=== PATIENT | male | born 1965 | race Caucasian/White ===

== ENCOUNTER 2018-09-22 10:17 | Day surgery (SDC) | payer OTHER ==
[2018-09-17 09:13] VITALS: BMI 26.0
[~2018-09-22 10:17] MED LIST: DEXAMETHASONE SOD PHOSPHATE 10 MG/ML 1 ML VIAL IV ONE; HYDROmorphone 0.5 MG/0.5 ML SYRINGE IVP PRN; LACTATED RINGERS 1,000 ML IV SCH; LIDOCAINE 1% 20 ML VIAL (10MG/ML) FOR IV START INTRADERMA PRN; ONDANSETRON 4 MG/2 ML VIAL IVP ONE; Pre Op ABX Message 1 EACH MISC MISCELLANE ONE; SCOPOLAMINE 1.5MG/72HR PATCH TRANSDERM ONE
[2018-09-22 10:54] LABS: Glucose,Whole Blood 128 mg/dL (75-99)
[2018-09-22] MEDS ORDERED: MIDAZOLAM 2 MG/2 ML VIAL IV ONE (11:08)
--- NOTE | 2018-09-22 11:17 | P.ONQ ---
Anesthesiology Proc Note - PNB - Peripheral Nerve Block Performed Left Interscalene Single Time Out Performed: Yes Procedure Start Time: 11:08 Procedure Stop Time: :13 Indication: Acute Post-Operative Pain, Requested by physician (Dr Cat) Sedation Type: Sedate with meaningful contact maintained Preparation: Sterile Prep Position: Supine Needle Types: On-Q Needle Size: 50mm (2") Needle Gauge: 20 Technique: Ultrasound Injectate: 0.5% Ropivacaine (see comment for volume) (30 ml) Blood Aspirated: No Pain Paresthesia on Injection Noted: No Resistance on Injection: Normal Events: Uneventful and Well Tolerated
[2018-09-22] MEDS ORDERED: BUPIVACAIN-EPI 0.5%-1:200,000 30 ML VIAL INTRAARTIC ONE ×2 (12:30→13:23)
[2018-09-22] MEDS ORDERED: PHENYLEPHRINE-0.9% NACL SYG 1 MG/10 ML SYRINGE ONE (13:10)
[2018-09-22] MEDS ORDERED: MIDAZOLAM 2 MG/2 ML VIAL ONE (13:10)
[2018-09-22] MEDS ORDERED: LIDOCAINE 1% INJ 10MG/ML (20 ML MDV) ONE (13:10)
[2018-09-22] MEDS ORDERED: SUCCINYLCHOLINE CHLORIDE 100 MG/5 ML SYR IV ONE (13:10)
[2018-09-22] MEDS ORDERED: ROPIVACAINE 5 MG/ML 30 ML VIAL ONE (13:10)
[2018-09-22] MEDS ORDERED: PROPOFOL 10 MG/ML 20 ML VIAL IV ONE (13:10)
[2018-09-22] MEDS ORDERED: fentaNYL (PF) 50 MCG/ML 2 ML AMP ONE (13:10)
[2018-09-22] MEDS ORDERED: ceFAZolin IN SWFI 2 GM/20 ML SYRINGE IVP ONE (13:23)
[2018-09-22 14:48] VITALS: TEMP 97.2
[2018-09-22 14:57] LABS: Glucose,Whole Blood 127 mg/dL (75-99)
[2018-09-22] MEDS ORDERED: LACTATED RINGERS 1,000 ML IV ONE (15:16)
[2018-09-22 16:16] VITALS: BP 124/81; PULSE 90; RESP 16
--- NOTE | 2018-09-22 19:13 | OP ---
OPERATIVE REPORT DATE OF PROCEDURE: 09/22/2018. PREOP DIAGNOSES: 1. Left shoulder full-thickness rotator cuff tear. 2. Left shoulder superior labral tear. 3. Left shoulder subacromial impingement. POSTOPERATIVE DIAGNOSES: 1. Left shoulder full-thickness tear of the supraspinatus and anterior infraspinatus 2 cm x 2 cm tear. 2. Left shoulder type 2 superior labral tear. 3. Left shoulder type 2 anterolateral acromial spur. 4. Left shoulder dense subacromial adhesions. PROCEDURE PERFORMED: 1. Left shoulder arthroscopic rotator cuff repair, 2 cm x 2 cm tear of the supraspinatus in the anterior infraspinatus. 2. Left shoulder arthroscopic acromioplasty. 3. Left shoulder arthroscopic biceps tenotomy. 4. Left shoulder arthroscopic anterior superior and posterior labral debridement. 5. Left shoulder arthroscopic subacromial lysis of adhesions. SURGEON: Peyman Cat M.D. VISCOSITY WORKER: Jaime JOHNSON. ANESTHESIA: General endotracheal. ESTIMATED BLOOD LOSS: Minimal. TOURNIQUET: None. DRAINS: None. COMPLICATIONS: None apparent. DISPOSITION: Postanesthesia care unit. PHYSICAL EXAMINATION: Examination under anesthesia, the left shoulder elevation was 150 degrees, external rotation at the side was 30 degrees. External rotation at 90 degrees, abduction was 70 degrees, internal rotation at 90 degrees and abduction was 30 degrees, sulcus less than 1 cm, anterior translation glenoid face, posterior translation glenoid face. ARTHROSCOPIC FINDINGS: Left shoulder: 1. Superior labrum type 2 superior labral tear tearing both anterior and posterior. The biceps anchor. The biceps anchor was not intact. There is also fairly significant partial tearing of the intra-articular portion of long head of the biceps tendon. 2. Anterior inferior labrum, normal glenoid labral attachment. 3. Posterior labrum: Tearing of the posterior labrum from the 10 o'clock position to the 12 o'clock position on the glenoid face. 4. Humeral head cartilage normal. 5. Rotator cuff: Full-thickness tear of the supraspinatus and the anterior infraspinatus 2 cm x 2 cm tear with retraction to the mid aspect of the humeral head. 6. Glenoid face cartilage was mild grade 1 change. 7. Subacromial space: Significant fraying of the undersurface of the coracoacromial ligament with a type 2 anterolateral acromial spur. There was also dense subacromial adhesions adhering from the acromion to the superior aspect of the rotator cuff. INDICATIONS: Alexis is a very pleasant 53-year-old male who had an injury to his left shoulder. He sustained this injury several months ago. He was noted to have weakness as well as the pain in the shoulder. He has been through fairly significant course of nonoperative treatment up to this point. Physical examination and MRI reveal a fairly significant tear of the rotator cuff as well as tearing of the superior labrum. At this point in time, the patient feels that he has failed conservative management and would like to proceed with operative intervention. Long discussion was held with the patient with regard to treatment options. The risks of procedure were all discussed in detail. These risks included, but were not limited to risk of infection, nerve damage, bleeding, pain, and a small risk of deep vein thrombosis which could lead to fatal pulmonary embolism. Further risks include lack of healing rotator cuff and the possibility for biceps contour change with a biceps tenotomy. The patient understands the operation as well as the fact that there is no guarantee of improvement of his symptoms. Appropriate informed consent was obtained. PROCEDURE: The patient was identified in preoperative holding area. Surgical site was marked by both the patient and myself. He was given 2 g of Ancef IV for prophylactic purposes. He was then transferred to the operative suite. He was placed supine on the operative table. The patient was then intubated endotracheally and received general anesthesia throughout the operative procedure. Examination under anesthesia was then performed with the findings noted above. The patient was then placed into the beach chair position well-padded in preparation for surgery. Great care was taken to ensure the cervical spine is in neutral alignment well-padded and maintained that way throughout the operative procedure. Great care was also taken to ensure that his legs were appropriately padded as well. The patient's left upper extremity was then prepped and draped in usual sterile fashion. Standard surgical pause undertaken to ensure that appropriate preop antibiotics were given and that we were operating the correct site. All staff in the room in agreement we proceeded. The acromion as well as the AC joint coracoid marked with surgical pen. Skin of the anticipated port sites were also marked with a surgical pen. The skin of the anticipated port sites were then injected with 0.25% Marcaine with epinephrine. I then proceeded to make the posterior portal. A 30 degree arthroscope was introduced in the glenohumeral joint through this portal. The arthroscopic pump pressure was set at 40 mmHg and maintained at that level throughout the entire case. Next utilizing an 18-gauge spinal needle topically localized placement, the anterior superior portal was made. This was made just underneath the biceps tendon high in the rotator interval. A small 5.75 mm cannula was then placed and the outflow was then done through this cannula. Diagnostic arthroscopy of the shoulder was then performed. The findings noted above. Great care was taken to probe superior labral complex as well as biceps anchor. The biceps anchor was not firmly attached. Significant tearing of the superior labrum. This extended both anterior and posterior to the bicipital anchor. The intra-articular portion of long head of the biceps tendon then did show some partial tearing as well. Then, at this point, I proceeded with a biceps tenotomy. The biceps was tenotomized. There was attachment on the supraglenoid tubercle. This was done utilizing the ArthroCare wand. I then proceeded to debride the torn loose tissue of the superior labrum. This was debrided anteriorly superiorly and posteriorly back to stable tissue. I then inspect the rotator cuff from intra-articular. I did have a fairly large full- thickness tear of the entire supraspinatus and the very anterior aspect of the infraspinatus. The tear was then debrided very gently from intra-articular utilizing synovial shaver. At this point time, no further work was deemed necessary from intra-articular. The arthroscope was removed from the glenohumeral joint and utilizing the same posterior skin incision was placed in the subacromial space. Next, utilizing an 18-gauge spinal needle topical localized placement. A lateral portal was made under direct visualization. Subacromial bursectomy was then performed utilizing synovial shaver as well as the ArthroCare wand. There was significant fraying of the undersurface of the coracoacromial ligament. This was then taken down utilizing the ArthroCare wand. This exposed underlying type 2 anterolateral acromial spur. I then proceeded with acromioplasty. Utilizing synovial shaver in a mu-type fashion, the acromioplasty was completed. When the acromioplasty was complete, the arthroscope was placed in the lateral portal. The shaver placed posteriorly to ensure there was adequate and coplanar with posterior aspect of the acromion. I then proceeded to repair the rotator cuff tear. He had a fairly large full-thickness tear of the entire supraspinatus and the anterior infraspinatus. This measured approximately 2 cm x 2 cm. The footprint of the greater tuberosity was then debrided of all devitalized tissue utilizing synovial shaver as well as the ArthroCare wand. I then performed a light decortication of to the greater tuberosity utilizing synovial shaver in a mu type fashion. This provided a nice bleeding surface with repair. I then made a 4th portal off the anterolateral angle of the acromion. Again this was first localized utilizing 18-gauge spinal needle topical localized placement. I then proceeded to place small microfracture holes along the articular margin to again enhance the healing of the repair. I then utilized scorpion suture passer and placed Arthrex fiber tape suture in inverted horizontal mattress fashion the posterior half of the tear. The sutures were shuttled out the anterolateral portal. I then utilized scorpion suture passer to place an Arthrex fiber tape suture in inverted horizontal mattress fashion in the anterior half of the tear. These sutures were shuttled out through the anterior lateral portal as well. I then moved the arthroscope to the portal made off the anterolateral angle acromion. The posterior sutures were then brought out through the lateral portal. I then proceeded with placement of posterior anchor. The awl was placed most posterior lateral aspect of the footprint. The sutures were an Arthrex 4.75 mm bio SwiveLock anchor was chosen. The sutures were shuttled through the anchor and the anchor was then placed after tensioning the sutures appropriately. The anchor had an excellent purchase in bone. This brought the posterior half of the tear down very nicely the most posterior lateral aspect of the footprint. The FiberTape sutures were cut flush with the anchor. The arthroscope was then moved to the lateral portal and the anterior sutures were brought out through the portal off the anterior lateral angle of the acromion. I then proceeded with placing the anterior anchor. The awl was placed in most anterolateral aspect of the footprint. This was just posterior to the bicipital groove. The sutures were again Arthrex 4.75 mm bio SwiveLock anchor was chosen. The suture was then shuttled through the anchor and the anchor placed after tensioning sutures appropriately. The anchor had excellent purchase in bone. This brought the anterior half of the tear down very nicely. Most anterolateral aspect of the footprint. The FiberTape sutures were cut flush with the anchor. At this time the repair was probed. The repaired down very nicely the most lateral aspect of the footprint. Of note, there was fairly dense adhesions around the rotator cuff. These were lysed with the ArthroCare wand, especially the superior adhesions. There was significant adhesions of the superior surface of the rotator cuff. The undersurface of the of the acromion. This was done prior to the repair. At this point time, no further work was deemed necessary. The shoulder was thoroughly irrigated and drained with an outflow cannula. The arthroscope was removed from the shoulder. The arthroscopic portals were then closed with 3-0 nylon interrupted suture. Sterile compressive dressing was then applied. The patient's left upper extremity was placed into a slingshot-type rotator cuff immobilizer. All sponge and needle counts were deemed correct prior to closure. The patient tolerated the procedure without apparent complication. He was transferred to the recovery room in stable condition. MMODL / IJN: [id number] /
== END 2018-09-22 16:20 | disposition home or self-care (01) ==
LOC: OR 10:17
PROVIDERS: ATTEND Orthopaedic Surgery Sports Medicine
DX: S46.012A Strain of muscle(s) and tendon(s) of the rotator cuff of left shoulder, initial encounter (principal); S43.432A Superior glenoid labrum lesion of left shoulder, initial encounter; S46.112A Strain of muscle, fascia and tendon of long head of biceps, left arm, initial encounter; M75.42 Impingement syndrome of left shoulder; M75.02 Adhesive capsulitis of left shoulder; M75.82 Other shoulder lesions, left shoulder; E10.9 Type 1 diabetes mellitus without complications; I10 Essential (primary) hypertension; Z87.891 Personal history of nicotine dependence; Z88.8 Allergy status to other drugs, medicaments and biological substances; Z79.4 Long term (current) use of insulin; Z79.899 Other long term (current) drug therapy
CPT/HCPCS: 64415; 29827; 29826; 29823; C1713 ×3; J2250; J1100; J2405; J2001; J3010; J2795; J2370; J0330; J2704; J0690